=== PATIENT | male | born 1930 | race Caucasian/White ===

== ENCOUNTER 2016-08-15 14:18 | Day surgery (SDC) | payer MEDICARE, OTHER ==
[~2016-08-15] VITALS: Ht 182.9 cm; Wt 85.9 kg
[2016-08-15] VITALS (7 sets, daily range): BP systolic 139–170; BP diastolic 64–98; PULSE 51–66; TEMP 97.9
[2016-08-15] MEDS ORDERED: AMOXICILLIN 50500 MG PO (15:02)
[2016-08-15] MEDS ORDERED: FLOMAX 0.40.4 MG/CAP PO (15:02)
[2016-08-15] MEDS ORDERED: PRILOSEC 20MG20 MG PO (15:03)
[2016-08-15] MEDS ORDERED: VOLTAREN 75 DR75 MG PO (15:03)
[2016-08-15] MEDS ORDERED: SYNTHROID0.075 MG/T PO (15:04)
[2016-08-15] MEDS ORDERED: STOOL SOFTENER100 M2 PO (15:05)
[2016-08-15] MEDS ORDERED: DAILY VITE1 TA1 PO (15:05)
[2016-08-15] MEDS ORDERED: ASPIRIN 81M81 MG/TA2 PO (15:05)
[2016-08-15] MEDS ORDERED: CAL MAG D PO (15:06)
[2016-08-15] MEDS ORDERED: LUTEIN6 MG PO (15:08)
[2016-08-16 02:26] VITALS: BP 150/62; PULSE 60; TEMP 98.3
[2016-08-16 05:32] VITALS: BP 133/52; PULSE 55; TEMP 97.9
[2016-08-16 11:25] VITALS: BP 164/63; PULSE 58; TEMP 97.6
== END 2016-08-16 13:34 | disposition home or self-care (01) ==
LOC: SDCO 14:18 → SURG 17:03 → SDCO 08-16 13:34
DX: C67.2 Malignant neoplasm of lateral wall of bladder (principal); K21.9 Gastro-esophageal reflux disease without esophagitis; E03.9 Hypothyroidism, unspecified; M19.90 Unspecified osteoarthritis, unspecified site; R31.0 Gross hematuria; Z87.891 Personal history of nicotine dependence; Z96.651 Presence of right artificial knee joint; N40.0 Benign prostatic hyperplasia without lower urinary tract symptoms; Z86.14 Personal history of Methicillin resistant Staphylococcus aureus infection; N32.89 Other specified disorders of bladder; Z80.52 Family history of malignant neoplasm of bladder
CPT/HCPCS: OP; A9284; C1769; J0690; J1100; J2270; J2405; J2704; J2765; J3010; J7030; J7120; Q9967

== ENCOUNTER 2016-12-25 05:53 | Observation (INO) | payer MEDICARE, OTHER ==
[~2016-12-25] VITALS: Ht 185.4 cm; Wt 88.5 kg
[2016-12-25] VITALS (12 sets, daily range): BP systolic 104–164; BP diastolic 43–89; PULSE 51–76; TEMP 97.4–99
[~2016-12-25 05:53] MED LIST: AMOXICILLIN 50500 MG PO; ASPIRIN 81M81 MG/TA2 PO; CAL MAG D PO; DAILY VITE1 TA1 PO; FLOMAX 0.40.4 MG/CAP PO; LUTEIN6 MG PO; PRILOSEC 20MG20 MG PO; STOOL SOFTENER100 M2 PO; SYNTHROID0.075 MG/T PO; VOLTAREN 75 DR75 MG PO
[2016-12-26 06:00] VITALS: BP 114/49; PULSE 75; TEMP 97.7
[2016-12-26 07:17] LABS: BASO % 0.4 % (0.0-2.0); EOS # 0.1 (0.0-0.7); EOS % 0.8 % (0-4.0); GRAN # 6.3 (1.4-6.5); GRAN % 80.1 % (42.2-75.2); HEMOGLOBIN 12.3 g/dl (13.5-18.0); LYMPH # 0.7 (1.2-3.4); LYMPH % 8.8 % (20.0-51.0); MEAN CELL VOLUME 90 fl (80.0-100.0); MEAN CORPUSCULAR HEMOGLOBIN 31 pg (27.0-31.0); MEAN CORPUSCULAR HGB CONC 34 g/dl (33.0-37.0); MONO # 0.7 (0.1-0.6); MONO % 9.4 % (1.7-9.3); PLATELET COUNT 169 K/mm3 (130-400); RED BLOOD COUNT 4.02 M/mm3 (4.20-5.60); WHITE BLOOD COUNT 7.9 K/mm3 (4.8-10.8)
[2016-12-26 07:18] LABS: HEMATOCRIT 36.1 % (42.0-52.0)
[2016-12-26 07:53] VITALS: BP 124/64; PULSE 62; TEMP 97.7
[2016-12-26 13:50] VITALS: BP 136/46; PULSE 65; TEMP 9706
[2016-12-26 18:30] VITALS: BP 138/60; PULSE 67; TEMP 98.6
[2016-12-26 22:09] VITALS: BP 141/57; PULSE 60; TEMP 98.1
[2016-12-27 01:51] VITALS: BP 151/55; PULSE 70; TEMP 98.2
[2016-12-27 06:13] VITALS: BP 114/56; PULSE 66; TEMP 98.2
[2016-12-27 09:22] VITALS: BP 121/59; PULSE 74; TEMP 97.9
[2016-12-27 14:22] VITALS: BP 139/52; PULSE 76; TEMP 97.5
== END 2016-12-27 16:28 | disposition home or self-care (01) ==
LOC: SDCO 05:53 → SURG 11:45 → SDCO 14:00 → SURG 17:37 → SDCO 12-26 09:00 → SURG 12-27 16:28
PROVIDERS: Urology
DX: C67.2 Malignant neoplasm of lateral wall of bladder (principal); N40.1 Benign prostatic hyperplasia with lower urinary tract symptoms; R33.8 Other retention of urine; K21.9 Gastro-esophageal reflux disease without esophagitis; E03.9 Hypothyroidism, unspecified; Z86.14 Personal history of Methicillin resistant Staphylococcus aureus infection
CPT/HCPCS: OP; G0378; J0690; J2250; J2270; J2405; J2704; J3010; J3480; J7120

== ENCOUNTER 2017-09-01 20:40 | Inpatient (IN) | payer MEDICARE, OTHER ==
[~2017-09-01] VITALS: Ht 185.4 cm; Wt 88.8 kg
[2017-09-01 22:14] VITALS: BP 122/81; PULSE 107; TEMP 98.2
[2017-09-01 23:10] VITALS: TEMP 102.3
[2017-09-02] VITALS (732 sets, daily range): BP systolic 92–181; BP diastolic 44–87; PULSE 72–117; TEMP 97.2–104; O2SAT 66–100
[2017-09-02 04:56] LABS: HEMOGLOBIN 10.9 g/dl (13.5-18.0); MEAN CELL VOLUME 94 fl (80.0-100.0); MEAN CORPUSCULAR HEMOGLOBIN 30 pg (27.0-31.0); MEAN CORPUSCULAR HGB CONC 32 g/dl (33.0-37.0); MEAN PLATELET VOLUME 9.8 fl (7.4-10.4); PLATELET COUNT 104 K/mm3 (130-400); RED BLOOD COUNT 3.59 M/mm3 (4.20-5.60); REDCELL DISTRIBUTION WIDTH-CV 13.2 % (11.5-14.5)
[2017-09-02 05:00] LABS: INR 1.1 (0.8-3.0)
[2017-09-02 05:05] LABS: ANION GAP 8 mmol/L (7-16); BLOOD UREA NITROGEN 24 mg/dL (9-20); CALCIUM 7.7 mg/dL (8.4-10.2); CARBON DIOXIDE 22 mmol/L (22-30); CHLORIDE 108 mmol/L (98-107); CREATININE, serum 1.42 mg/dL (0.66-1.25); GLUCOSE 133 mg/dL (74-106); POTASSIUM 3.4 mmol/L (3.4-5.0); SODIUM 138 mmol/L (137-145)
[2017-09-02 05:09] LABS: SALICYLATE < 1.0 mg/dL
[2017-09-02 05:14] LABS: HEMATOCRIT 33.6 % (42.0-52.0)
[2017-09-02 06:01] LABS: BAND 30 % (0-10); LYMPHOCYTE 9 % (20.0-51.0); METAMYELOCYTE 1 % (0-0); NEUTROPHILS 57 % (42.0-75.2); PLATELET ESTIMATE DECREASED (NORMAL)
[2017-09-02 06:02] LABS: ANISOCYTOSIS 1+; HYPOCHROMIA 1+
[2017-09-02 17:32] LABS: CALCIUM 7.4 mg/dL (8.4-10.2); CREATININE, serum 1.32 mg/dL (0.66-1.25); MAGNESIUM 1.4 mg/dL (1.6-2.3); PHOSPHOROUS 2.5 mg/dL (2.5-4.5); POTASSIUM 3.8 mmol/L (3.4-5.0)
[2017-09-03] VITALS (809 sets, daily range): BP systolic 107–139; BP diastolic 51–72; PULSE 71–93; TEMP 97.3–98; O2SAT 64–100
[2017-09-03 04:07] LABS: MEAN CELL VOLUME 92 fl (80.0-100.0); MEAN CORPUSCULAR HGB CONC 33 g/dl (33.0-37.0); MEAN PLATELET VOLUME 9.8 fl (7.4-10.4); PLATELET COUNT 83 K/mm3 (130-400); RED BLOOD COUNT 3.19 M/mm3 (4.20-5.60); REDCELL DISTRIBUTION WIDTH-CV 13.6 % (11.5-14.5)
[2017-09-03 04:09] LABS: HEMATOCRIT 29.4 % (42.0-52.0); HEMOGLOBIN 9.7 g/dl (13.5-18.0); MEAN CORPUSCULAR HEMOGLOBIN 30 pg (27.0-31.0)
[2017-09-03 04:14] LABS: INR 1.3 (0.8-3.0); PROTHROMBIN TIME 14.3 SECONDS (9.7-12.8)
[2017-09-03 04:19] LABS: ALBUMIN 2.4 gm/dL (3.5-5.0); BILIRUBIN,TOTAL 1.2 mg/dL (0.0-1.0); CALCIUM 7.2 mg/dL (8.4-10.2); CREATININE, serum 1.2 mg/dL (0.66-1.25); PHOSPHOROUS 2.9 mg/dL (2.5-4.5); POTASSIUM 3.6 mmol/L (3.4-5.0); TOTAL PROTEIN 4.6 gm/dL (6.4-8.2)
[2017-09-03 05:55] LABS: BAND 26 % (0-10); LYMPHOCYTE 5 % (20.0-51.0); METAMYELOCYTE 1 % (0-0); MYELOCYTE 1 % (0-0); NEUTROPHILS 61 % (42.0-75.2); PLATELET ESTIMATE DECREASED (NORMAL)
[2017-09-04] VITALS (463 sets, daily range): BP systolic 130–160; BP diastolic 55–77; PULSE 67–85; TEMP 97.4–98.6; O2SAT 70–100
[2017-09-04 05:24] LABS: HEMOGLOBIN 10.1 g/dl (13.5-18.0); MEAN CELL VOLUME 89 fl (80.0-100.0); MEAN CORPUSCULAR HEMOGLOBIN 31 pg (27.0-31.0); MEAN CORPUSCULAR HGB CONC 34 g/dl (33.0-37.0); MEAN PLATELET VOLUME 9.8 fl (7.4-10.4); PLATELET COUNT 96 K/mm3 (130-400); RED BLOOD COUNT 3.29 M/mm3 (4.20-5.60); REDCELL DISTRIBUTION WIDTH-CV 13.5 % (11.5-14.5)
[2017-09-04 05:27] LABS: HEMATOCRIT 29.4 % (42.0-52.0)
[2017-09-04 05:32] LABS: INR 1.1 (0.8-3.0); PROTHROMBIN TIME 12.9 SECONDS (9.7-12.8)
[2017-09-04 05:34] LABS: ALBUMIN 2.6 gm/dL (3.5-5.0); BILIRUBIN,TOTAL 1.4 mg/dL (0.0-1.0); CALCIUM 8.2 mg/dL (8.4-10.2); CREATININE, serum 1.03 mg/dL (0.66-1.25); POTASSIUM 3.6 mmol/L (3.4-5.0)
[2017-09-04 07:20] LABS: BAND 13 % (0-10); BASOPHIL 1 % (0-2); LYMPHOCYTE 15 % (20.0-51.0); NEUTROPHILS 66 % (42.0-75.2)
[2017-09-04 07:22] LABS: DOHLE BODIES PRESENT; PLATELET ESTIMATE DECREASED (NORMAL); TOXIC GRANULATION PRESENT
[2017-09-04 12:17] LABS: PARTIAL THROMBOPLASTIN TIME 30.5 SECONDS (26.0-37.0)
[2017-09-05 04:30] VITALS: BP 133/62; PULSE 84; TEMP 97.7
[2017-09-05 07:02] LABS: ALBUMIN 2.7 gm/dL (3.5-5.0); CALCIUM 8.7 mg/dL (8.4-10.2); CREATININE, serum 0.94 mg/dL (0.66-1.25); POTASSIUM 3.7 mmol/L (3.4-5.0); TOTAL PROTEIN 5.2 gm/dL (6.4-8.2)
[2017-09-05 08:44] LABS: HEMOGLOBIN 10.4 g/dl (13.5-18.0); MEAN CELL VOLUME 89 fl (80.0-100.0); MEAN CORPUSCULAR HEMOGLOBIN 31 pg (27.0-31.0); MEAN CORPUSCULAR HGB CONC 34 g/dl (33.0-37.0); MEAN PLATELET VOLUME 10.2 fl (7.4-10.4); PLATELET COUNT 135 K/mm3 (130-400); RED BLOOD COUNT 3.39 M/mm3 (4.20-5.60); REDCELL DISTRIBUTION WIDTH-CV 13.4 % (11.5-14.5)
[2017-09-05 08:59] LABS: HEMATOCRIT 30.2 % (42.0-52.0)
[2017-09-05 09:08] VITALS: BP 127/52; PULSE 80; TEMP 98.1
[2017-09-05 10:29] LABS: BAND 13 % (0-10); EOSINOPHIL 2 % (0-4); LYMPHOCYTE 12 % (20.0-51.0); NEUTROPHILS 71 % (42.0-75.2); PLATELET ESTIMATE DECREASED (NORMAL)
[2017-09-05 12:20] VITALS: BP 153/65; PULSE 78; TEMP 98.4
[2017-09-05 16:18] VITALS: BP 142/55; PULSE 85; TEMP 97.9
[2017-09-05 19:35] VITALS: BP 141/62; PULSE 94; TEMP 98
[2017-09-05 23:40] VITALS: BP 143/62; PULSE 79; TEMP 98.5
[2017-09-06 04:14] VITALS: BP 113/49; PULSE 78; TEMP 98.3
[2017-09-06 05:30] LABS: HEMOGLOBIN 10.6 g/dl (13.5-18.0); MEAN CELL VOLUME 89 fl (80.0-100.0); MEAN CORPUSCULAR HEMOGLOBIN 31 pg (27.0-31.0); MEAN CORPUSCULAR HGB CONC 34 g/dl (33.0-37.0); MEAN PLATELET VOLUME 9.4 fl (7.4-10.4); PLATELET COUNT 157 K/mm3 (130-400); RED BLOOD COUNT 3.46 M/mm3 (4.20-5.60); REDCELL DISTRIBUTION WIDTH-CV 13.4 % (11.5-14.5)
[2017-09-06 05:36] LABS: HEMATOCRIT 30.8 % (42.0-52.0)
[2017-09-06 05:42] LABS: CALCIUM 8.9 mg/dL (8.4-10.2); CREATININE, serum 0.89 mg/dL (0.66-1.25); POTASSIUM 3.7 mmol/L (3.4-5.0)
[2017-09-06 06:09] LABS: BAND 6 % (0-10); EOSINOPHIL 2 % (0-4); LYMPHOCYTE 17 % (20.0-51.0); METAMYELOCYTE 1 % (0-0); NEUTROPHILS 68 % (42.0-75.2); PLATELET ESTIMATE NORMAL (NORMAL)
[2017-09-06 07:43] VITALS: BP 148/68; PULSE 73; TEMP 98.2
[2017-09-06 12:28] VITALS: BP 141/56; PULSE 77; TEMP 97.7
[2017-09-06 17:08] VITALS: BP 129/53; PULSE 80; TEMP 98.8
[2017-09-06 19:48] VITALS: BP 131/57; PULSE 77; TEMP 98.1
[2017-09-07 00:04] VITALS: BP 125/60; PULSE 78; TEMP 98.1
[2017-09-07 04:57] VITALS: BP 97/49; PULSE 84; TEMP 98.1
[2017-09-07 06:56] LABS: HEMOGLOBIN 11.1 g/dl (13.5-18.0); MEAN CELL VOLUME 90 fl (80.0-100.0); MEAN CORPUSCULAR HEMOGLOBIN 30 pg (27.0-31.0); MEAN CORPUSCULAR HGB CONC 33 g/dl (33.0-37.0); MEAN PLATELET VOLUME 9.7 fl (7.4-10.4); PLATELET COUNT 196 K/mm3 (130-400); RED BLOOD COUNT 3.69 M/mm3 (4.20-5.60); REDCELL DISTRIBUTION WIDTH-CV 13.4 % (11.5-14.5)
[2017-09-07 07:16] LABS: CALCIUM 9.1 mg/dL (8.4-10.2); CREATININE, serum 0.92 mg/dL (0.66-1.25); POTASSIUM 4.1 mmol/L (3.4-5.0)
[2017-09-07 07:22] LABS: HEMATOCRIT 33.2 % (42.0-52.0)
[2017-09-07 08:09] LABS: BAND 12 % (0-10); EOSINOPHIL 2 % (0-4); LYMPHOCYTE 19 % (20.0-51.0); NEUTROPHILS 66 % (42.0-75.2); PLATELET ESTIMATE NORMAL (NORMAL)
[2017-09-07 08:10] VITALS: BP 127/73; PULSE 69; TEMP 98.7
[2017-09-07 11:20] VITALS: BP 121/62; PULSE 80; TEMP 98.4
[2017-09-07] MEDS ORDERED: LEVAQUIN 750MG750 M1 PO (13:35)
[2017-09-07] MEDS ORDERED: ELIQUIS 5MG PO (13:42)
== END 2017-09-07 15:55 | disposition home or self-care (01) | DRG 871 ==
LOC: SURG 20:40 → ICU 09-02 00:19 → SURG 09-04 16:25
PROVIDERS: Internal Medicine Pulmonary Disease; Nurse Practitioner; Physician Assistant; Urology
PROC: 0T768DZ Dilation of Right Ureter with Intraluminal Device, Via Natural or Artificial Opening Endoscopic (ICD-10-PCS; principal; 2017-09-01 23:50)
PROC: BT1DZZZ Fluoroscopy of Right Kidney, Ureter and Bladder (ICD-10-PCS; 2017-09-01 23:50)
DX: A41.9 Sepsis, unspecified organism (principal); R65.21 Severe sepsis with septic shock; D65 Disseminated intravascular coagulation [defibrination syndrome]; N39.0 Urinary tract infection, site not specified; N20.2 Calculus of kidney with calculus of ureter; N17.9 Acute kidney failure, unspecified; J98.11 Atelectasis; J90 Pleural effusion, not elsewhere classified; R04.2 Hemoptysis; I82.4Z2 Acute embolism and thrombosis of unspecified deep veins of left distal lower extremity; Z85.51 Personal history of malignant neoplasm of bladder; Z87.891 Personal history of nicotine dependence; D64.9 Anemia, unspecified; B96.20 Unspecified Escherichia coli [E. coli] as the cause of diseases classified elsewhere
CPT/HCPCS: 99223; 99232-AI; 99233-AI; 99239; A4314; A9284; C1726; C1751; C1769; C2617; G0379; J0690; J1170; J1644; J1940; J2370; J2543; J2704; J2997; J3010; J3370; J3475; J7030; J7040; J7050; Q9967

== ENCOUNTER 2017-10-01 06:45 | Day surgery (SDC) | payer MEDICARE, OTHER ==
[~2017-10-01] VITALS: Ht 185.4 cm; Wt 85.0 kg
[~2017-10-01 06:45] MED LIST changes: +ELIQUIS 5MG PO; +LEVAQUIN 750MG750 M1 PO
[2017-10-01 07:40] VITALS: BP 178/83; PULSE 58; TEMP 97.9
[2017-10-01] MEDS ORDERED: AMOXICILLIN 50500 MG PO (07:46)
[2017-10-01] MEDS ORDERED: MULTI VITAMINS1 TAB PO (07:48)
[2017-10-01] MEDS ORDERED: K-TAB10 PO (07:51)
[2017-10-01 09:20] VITALS: BP 138/63; PULSE 58; TEMP 96.9
[2017-10-01] MEDS ORDERED: PYRIDIUM 100MG100 MG PO (09:33)
[2017-10-01 09:35] VITALS: BP 155/78; PULSE 65
[2017-10-01 09:50] VITALS: BP 141/65; PULSE 65
[2017-10-01 10:05] VITALS: BP 145/88; PULSE 66
== END 2017-10-01 11:10 | disposition home or self-care (01) ==
LOC: SDCO 06:45
DX: N20.1 Calculus of ureter (principal); D49.4 Neoplasm of unspecified behavior of bladder; M19.90 Unspecified osteoarthritis, unspecified site; K21.9 Gastro-esophageal reflux disease without esophagitis; E03.9 Hypothyroidism, unspecified; Z96.659 Presence of unspecified artificial knee joint; Z88.2 Allergy status to sulfonamides; Z90.79 Acquired absence of other genital organ(s); Z86.14 Personal history of Methicillin resistant Staphylococcus aureus infection; Z87.891 Personal history of nicotine dependence; Z80.52 Family history of malignant neoplasm of bladder; Z80.8 Family history of malignant neoplasm of other organs or systems; Z82.49 Family history of ischemic heart disease and other diseases of the circulatory system
CPT/HCPCS: C1769; J0690; J1100; J2405; J2704; J3010; J7120

== ENCOUNTER 2018-12-16 12:47 | Day surgery (SDC) | payer MEDICARE ==
[2018-12-16] VITALS (7 sets, daily range): BP systolic 132–154; BP diastolic 52–76; PULSE 56–66; TEMP 97.7–97.8
[~2018-12-16] VITALS: Ht 182.9 cm; Wt 88.4 kg
[~2018-12-16 12:47] MED LIST changes: +K-TAB10 PO; +MULTI VITAMINS1 TAB PO; +PYRIDIUM 100MG100 MG PO
--- NOTE | 2018-12-16 13:58 | NUR ---
Initial visit; Patient thanked Clinical Appeals Reviewer for offering encouragement and prayer prior to his surgical procedure.
[2018-12-16] MEDS ORDERED: CALCIUM/MAGNESI1 T13 PO (14:04)
--- NOTE | 2018-12-16 18:08 | NUR ---
Patient alert and oriented, answers questions appropriately. See assessment. Keller catheter in place and patent, draining clear yellow urine. CBI infusing at slow rate. No c/o at this time.
[2018-12-17 00:16] VITALS: BP 153/66; PULSE 61; TEMP 97.4
--- NOTE | 2018-12-17 03:06 | NUR ---
patient doing well throughout night. c/o headache which is uncommon for him. given prn tylenol. dhillon catheter output is clear and pale yellow. CBI infusing slow. patient denies any other pain or need for pain medication. no further needs at this time will continue to monitor.
[2018-12-17 04:28] VITALS: BP 140/64; PULSE 63; TEMP 97.5
[2018-12-17 07:00] VITALS: BP 145/69; PULSE 61; TEMP 98.5
--- NOTE | 2018-12-17 08:30 | NUR ---
Patient has been resting well this am. Denies pain or nausea. Explained the plan for today. Patient is aware he will be getting the chemo in his bladder this morning and discharge this afternoon. No complaints of pain or nausea at this time. Call light within reach. Urine is yellow and clear, no clots. CBI is clamped off, it was clamped at 0645.
--- NOTE | 2018-12-17 09:34 | NUR ---
Reviewed with pt again what mitomycin is and why it is being used. Printed information was provided as well regarding the medication and discharge instructions. Consent was signed. Procedure reviewed and questions invited and answered. Wearing appropriate PPE and precaution signage posted, Mitomycin 40mg was instilled into bladder after catheter was clamped at 0915. Report to nurse Mireya Ramsey RN who also had verified the mitomycin with me earlier with the written orders. 1000ml of clear urine was drained from dhillon bag prior to instillation. Chemotherapy cart is outside of room and readily available.
[2018-12-17 10:35] VITALS: BP 138/66; PULSE 64; TEMP 97.9
--- NOTE | 2018-12-17 11:39 | NUR ---
Supervisor D[employer] And Softening met with patient to complete initial intake and dicuss discharge planning. Patient states he lives at home with his Clarita ([id number]#[phone]) in [place]. Patient sees Dr. Maco Carlin for primary care and has his medications delivered to his home by [facility]. Patient states if he needs any last minute prescriptions, he utilizes [facility] which is the local pharmacy in [place]. Patient reports independence with ADLS and states he has a walker and cane from previous surgeries. Patient states he has a living will. Patient plans to return home upon discharge. SW to continue to follow as needed.
--- NOTE | 2018-12-17 11:50 | NUR ---
Mitomycin was released from the bladder at 1050. 750ml of clear bluish urine was released. 250ml of irrigation fluid was used to flush the bladder and then dhillon balloon was emptied and dhillon catheter was removed. Pericare provided. Tolerated well by pt. Chemotherapy precautions are in placed and were followed during this procedure. Pt was provided with a urinal and pericare wipes to booe used with future voids. Report to Mireya Ramsey RN.
--- NOTE | 2018-12-17 13:43 | NUR ---
Follow-up visit; Patient thanked Security Delivery Specialist for looking in on him and offering God's blessings and a good recovery.
--- NOTE | 2018-12-17 15:00 | NUR ---
Patient is discharging home. Discharge instructions discussed with patient. No questions verbalized. INT discontinued. Patient is waiting for his ride. Explained when his follow up appointment is. Patient verbalized understanding. Copies of discharge instructions give to patient. Patient voided twice before discharging that was measured and once he forgot to use the urinal. Urine output is yellow and clear. All belongings packed up.
== END 2018-12-17 15:45 | disposition home or self-care (01) ==
LOC: SDCO 12:47 → SURG 17:58 → SDCO 12-17 15:45
DX: C67.2 Malignant neoplasm of lateral wall of bladder (principal); C68.0 Malignant neoplasm of urethra; K21.9 Gastro-esophageal reflux disease without esophagitis; E03.9 Hypothyroidism, unspecified; Z86.14 Personal history of Methicillin resistant Staphylococcus aureus infection; Z79.899 Other long term (current) drug therapy; Z90.79 Acquired absence of other genital organ(s); Z88.2 Allergy status to sulfonamides; Z87.891 Personal history of nicotine dependence; Z80.52 Family history of malignant neoplasm of bladder; Z80.8 Family history of malignant neoplasm of other organs or systems
CPT/HCPCS: OP; C1769; J0690; J1100; J2405; J2704; J3010; J7120; J9280; Q9967